=== PATIENT | male | born 1950 | race Caucasian/White ===

== ENCOUNTER 2018-05-18 10:05 | Emergency (ER) | payer OTHER ==
[~2018-05-18] VITALS: Ht 175.3 cm; Wt 76.0 kg
[2018-05-18] MEDS ORDERED: DICLOFENAC SODI75 MG PO (10:27)
[2018-05-18] MEDS ORDERED: ALLOPURINOL100 MG PO (10:28)
[2018-05-18] MEDS ORDERED: PRAMIPEXOLE D0.25 MG PO (10:28)
[2018-05-18] MEDS ORDERED: CRESTOR10 MG PO (10:28)
[2018-05-18] MEDS ORDERED: CYCLOBENZAPR10 MG PO (10:29)
[2018-05-18] MEDS ORDERED: FOLIC ACID1 MG PO (10:29)
[2018-05-18] MEDS ORDERED: [UNRECOGNIZED DRUG - OTHER] PO (10:30)
[2018-05-18] MEDS ORDERED: ESOMEPRAZOLE MA40 MG (10:31)
[2018-05-18] MEDS ORDERED: IMBRUVICA140 MG (10:31)
[2018-05-18 11:04] LABS: HEMATOCRIT 44.8 % (39.0-50.0); HEMOGLOBIN 14.4 g/dl (14.0-18.0); IMMATURE GRANULOCYTES 0.3 % (0.0-5.0); MEAN CELL VOLUME 101.6 fL CALC (80.0-100.0); MEAN CORPUSCULAR HGB 32.7 pG CALC (26.0-32.0); MEAN CORPUSCULAR HGB CONC 32.1 g/L CALC (32.0-36.0); PLATELET COUNT 80 thou/uL (130-400); RED BLOOD COUNT 4.41 mill/uL (4.70-6.10); RED CELL DISTRI WIDTH 13.3 % (11.5-15.5)
[2018-05-18 11:15] LABS: MANUAL DIFFERENTIAL YES
[2018-05-18 11:19] LABS: BUN 15 mg/dL (8-23); BUN/CREATININE RATIO 13 (12-20 (CALC)); CARBON DIOXIDE 27 mmol/l (22-30); CREATININE 1.1 mg/dL (0.7-1.3); GFR > 60 ML/MIN (>=60 (CALC)); GFR FOR AFR.AMER. > 60 ML/MIN (>=60 (CALC)); POTASSIUM 4.1 mmol/l (3.5-5.1); SODIUM 138 mmol/l (137-146)
[2018-05-18 11:21] LABS: ANION GAP 14 (6-22 (CALC)); CHLORIDE 101 mmol/l (95-108)
[2018-05-18 11:40] LABS: BAND 6 % (0-8)
[2018-05-18 11:41] LABS: IMMATURE CELLS 5 %
[2018-05-18] MEDS ORDERED: ZPAK PO (11:53)
[2018-05-18] MEDS ORDERED: AUGMENTIN875TAB PO (11:53)
[2018-05-18] MEDS ORDERED: TAM75CAP PO (11:53)
[2018-05-18 12:01] VITALS: BP 171/87
== END 2018-05-18 12:04 | disposition home or self-care (01) | DRG 194 ==
LOC: ED 10:05
PROVIDERS: Family Medicine
DX: J18.9 Pneumonia, unspecified organism (principal); C91.10 Chronic lymphocytic leukemia of B-cell type not having achieved remission

== ENCOUNTER 2018-07-01 16:51 | Emergency (ER) | payer OTHER ==
[~2018-07-01] VITALS: Ht 175.3 cm; Wt 77.3 kg
[~2018-07-01 16:51] MED LIST: ALLOPURINOL100 MG PO; AUGMENTIN875TAB PO; CRESTOR10 MG PO; CYCLOBENZAPR10 MG PO; DICLOFENAC SODI75 MG PO; ESOMEPRAZOLE MA40 MG; FOLIC ACID1 MG PO; IMBRUVICA140 MG; PRAMIPEXOLE D0.25 MG PO; TAM75CAP PO; ZPAK PO; [UNRECOGNIZED DRUG - OTHER] PO
[2018-07-01 17:24] LABS: HEMATOCRIT 44.5 % (39.0-50.0); HEMOGLOBIN 14.3 g/dl (14.0-18.0); IMMATURE GRANULOCYTES 0.4 % (0.0-5.0); MEAN CELL VOLUME 100.2 fL CALC (80.0-100.0); MEAN CORPUSCULAR HGB 32.2 pG CALC (26.0-32.0); MEAN CORPUSCULAR HGB CONC 32.1 g/L CALC (32.0-36.0); RED BLOOD COUNT 4.44 mill/uL (4.70-6.10); RED CELL DISTRI WIDTH 13.8 % (11.5-15.5)
[2018-07-01 17:39] LABS: ALBUMIN 4.6 g/dL (3.2-5.0); ALKALINE PHOSPHATASE 46 u/l (38-126); ANION GAP 15 (6-22 (CALC)); BILIRUBIN, TOTAL 0.6 mg/dL (0.0-1.4); BUN 17 mg/dL (8-23); BUN/CREATININE RATIO 17 (12-20 (CALC)); CARBON DIOXIDE 25 mmol/l (22-30); CHLORIDE 105 mmol/l (95-108); GFR > 60 ML/MIN (>=60 (CALC)); GFR FOR AFR.AMER. > 60 ML/MIN (>=60 (CALC)); POTASSIUM 3.9 mmol/l (3.5-5.1); SGOT/AST 18 u/l (19-48); SODIUM 142 mmol/l (137-146); TOTAL PROTEIN 6.2 g/dL (6.3-8.2)
[2018-07-01 17:54] LABS: MANUAL DIFFERENTIAL YES; PLATELET COUNT 152 thou/uL (130-400)
[2018-07-01 18:07] LABS: D-DIMER 0.17 mg/L (0.19-0.60); PROTHROMBIN TIME 10.1 SECONDS (9.0-12.5)
[2018-07-01 20:32] LABS: URINE BILIRUBIN - DIPSTICK NEGATIVE (NEGATIVE); URINE BLOOD DIPSTICK LARGE (NEGATIVE); URINE COLOR YELLOW; URINE GLUCOSE - DIPSTICK NEGATIVE (NEGATIVE); URINE KETONE NEGATIVE (NEGATIVE); URINE LEUK ESTERASE NEGATIVE (NEGATIVE); URINE NITRITE - DIPSTICK NEGATIVE (Negative); URINE PROTEIN - DIPSTICK NEGATIVE (NEG-TRACE); URINE SPECIFIC GRAVITY 1.015; URINE UROBILINOGEN - DIPSTICK 0.2 E.U./dL (0.2)
[2018-07-01 20:55] LABS: URINE RBC TNTC RBC/hpf (0-5); URINE SQUAMOUS EPITHELIAL CELL FEW EPI/hpf (0-FEW)
[2018-07-01] MEDS ORDERED: BACTRIM DS1 TAB PO (21:58)
[2018-07-01] MEDS ORDERED: PREVACID30 M3 PO (21:58)
[2018-07-01 22:12] VITALS: BP 143/66
== END 2018-07-01 22:12 | disposition home or self-care (01) | DRG 816 ==
LOC: ED 16:51
PROVIDERS: Emergency Medicine
DX: R59.1 Generalized enlarged lymph nodes (principal); K29.70 Gastritis, unspecified, without bleeding; R31.9 Hematuria, unspecified; R10.13 Epigastric pain; R07.9 Chest pain, unspecified; R06.02 Shortness of breath; R60.0 Localized edema
CPT/HCPCS: Q9967